=== PATIENT | male | born 1945 | race Caucasian/White ===

== ENCOUNTER 2024-05-21 20:08 | Inpatient (IN) | payer MEDICARE, OTHER ==
[2024-05-21 21:31] LABS: #Basophils 0.03 10x3/uL (0.0-0.2); %Basophils 0.4 % (0.0-1.0); %Eosinophils 1.3 % (0.0-10.0); %Lymphocytes 13.6 % (21.0-51.0); %Monocytes 11.5 % (0.0-10.0); %Neutrophils 72.6 % (42.0-75.0); Hematocrit 39.8 % (42.0-52.0); Hemoglobin 13.2 g/dL (14.0-18.0); Mean Corpuscular HGB CONC 33.2 g/dL (32.0-36.0); Mean Corpuscular Hemoglobin 33.8 pg (27.0-31.0); Mean Corpuscular Volume 102.1 fL (78.0-98.0); Mean Platelet Volume 9.8 fL (7.4-10.4); Platelet Count 391 10x3/uL (130-400)
[2024-05-21 21:42] LABS: ALT (SGPT) 10 U/L (8-55); AST (SGOT) 15 U/L (5-34); Albumin 2.6 g/dL (3.4-4.8); Alkaline Phosphatase 90 U/L (40-110); Anion Gap 13 mmol/L (10-20); BUN (Urea Nitrogen) 16 mg/dL (8.4-25.7); Bilirubin, Total 0.5 mg/dL (0.2-1.2); Calc. Creatinine Clearance 0 mL/min (70-130); Calcium 9.1 mg/dL (7.8-10.44); Carbon Dioxide 29 mmol/L (23-31); Chloride 105 mmol/L (98-107); Estimated GFR 60; Globulin 3.6 g/dL (2.4-3.5); Glucose 95 mg/dL (83-110); Magnesium 2.1 mg/dL (1.6-2.6); Potassium 3.9 mmol/L (3.5-5.1); Protein, Total 6.2 g/dL (5.8-8.1); Sodium 143 mmol/L (136-145)
[2024-05-21] MEDS ORDERED: Acetaminophen 650 MG Suppository PR PRN (22:46)
[2024-05-21] MEDS ORDERED: Ondansetron PF 4 MG/2 ML Vial IVP PRN (22:46)
[2024-05-21] MEDS ORDERED: Ondansetron ODT 4 MG TAB PO PRN (22:46)
[2024-05-21] MEDS ORDERED: traMADol HCl 50 MG TAB PO PRN (22:46)
[2024-05-22 00:14] VITALS: BMI 23.4
[2024-05-22 05:35] LABS: #Basophils 0.04 10x3/uL (0.0-0.2); %Basophils 0.6 % (0.0-1.0); %Eosinophils 1.9 % (0.0-10.0); %Lymphocytes 15.1 % (21.0-51.0); %Monocytes 11.1 % (0.0-10.0); %Neutrophils 70.8 % (42.0-75.0); Hematocrit 38.1 % (42.0-52.0); Hemoglobin 12.4 g/dL (14.0-18.0); Mean Corpuscular HGB CONC 32.5 g/dL (32.0-36.0); Mean Corpuscular Volume 104.4 fL (78.0-98.0); Mean Platelet Volume 9.5 fL (7.4-10.4); Platelet Count 323 10x3/uL (130-400); RBC Distribution Width 15.9 % (11.5-14.5); Red Blood Cell (RBC) Count 3.65 mill/uL (4.70-6.10)
[2024-05-22 05:48] LABS: Anion Gap 14 mmol/L (10-20); BUN (Urea Nitrogen) 16 mg/dL (8.4-25.7); Calc. Creatinine Clearance 55 mL/min (70-130); Calcium 8.7 mg/dL (7.8-10.44); Carbon Dioxide 26 mmol/L (23-31); Chloride 104 mmol/L (98-107); Estimated GFR 72; Glucose 94 mg/dL (83-110); Potassium 3.8 mmol/L (3.5-5.1); Sodium 140 mmol/L (136-145)
[2024-05-22] MEDS ORDERED: Famotidine/PF 20 mg/2ml Vial ONE (08:33)
[2024-05-22] MEDS: Famotidine/PF 20 mg/2ml Vial SLOW IVP SCH (08:36)
[2024-05-22] MEDS ORDERED: Magnevist 469MG/ML 20 ML VIAL ONE (10:59)
[2024-05-22] MEDS: Ipratropium/Albuterol 3 ML NEB NEB SCH (18:30)
[2024-05-22] MEDS ORDERED: Enoxaparin 60 MG (0.6 mL) SYRINGE SC SCH (21:00)
[2024-05-23 05:24] LABS: #Basophils 0.04 10x3/uL (0.0-0.2); %Basophils 0.6 % (0.0-1.0); %Eosinophils 0.8 % (0.0-10.0); %Lymphocytes 12.4 % (21.0-51.0); %Monocytes 10.4 % (0.0-10.0); %Neutrophils 75.3 % (42.0-75.0); Hematocrit 34.6 % (42.0-52.0); Hemoglobin 11.3 g/dL (14.0-18.0); Mean Corpuscular HGB CONC 32.7 g/dL (32.0-36.0); Mean Corpuscular Hemoglobin 33.7 pg (27.0-31.0); Mean Corpuscular Volume 103.3 fL (78.0-98.0); Mean Platelet Volume 9.5 fL (7.4-10.4); Platelet Count 315 10x3/uL (130-400); Red Blood Cell (RBC) Count 3.35 mill/uL (4.70-6.10)
[2024-05-23] MEDS: Furosemide 40 MG TAB PO SCH (08:36)
[2024-05-23] MEDS ORDERED: Lidocaine 1% MPF 2 ML VIAL ONE (08:57)
[2024-05-23] MEDS ORDERED: fentaNYL 50 mcg/mL 1 mL Vial ONE (09:11)
[2024-05-23] MEDS ORDERED: fentaNYL PF 100 MCG/2 ML SYRINGE ONE (09:40)
[2024-05-23] MEDS ORDERED: Rocuronium Bromide 10 MG/ML (10ML VIAL) ONE (09:40)
[2024-05-23] MEDS ORDERED: PROPOFOL 20 ML ONE (09:41)
[2024-05-23] MEDS ORDERED: PHENYLEPHRINE-NS 100 MCG/ML 10 ML SYRINGE ONE (09:58)
[2024-05-23] MEDS ORDERED: CEFAZOLIN 2 GM in Sodium Chloride 0.9% 100 ML IVPB SCH (10:00)
[2024-05-23] MEDS ORDERED: Bupivacaine PF 0.5% 30 ML VIAL ONE (10:10)
[2024-05-23] MEDS ORDERED: EPINEPHrine 1 MG/ML VIAL ONE (10:10)
[2024-05-23] MEDS ORDERED: Ondansetron PF 4 MG/2 ML Vial ONE (10:24)
[2024-05-23] MEDS ORDERED: Dexamethasone 4 mg/ml Vial ONE (10:24)
[2024-05-23] MEDS ORDERED: SUGAMMADEX SODIUM 200 MG/2 ML VIAL ONE (10:27)
[2024-05-23] MEDS ORDERED: HYDROmorphone 2 MG/ML VIAL SLOW IVP PRN (10:49)
[2024-05-23] MEDS ORDERED: Ondansetron HCl/PF 4 MG/2 ML Vial IVP PRN (10:49)
[2024-05-23] MEDS: Acetaminophen 325 MG TAB PO PRN (16:42)
[2024-05-24 08:31] LABS: #Basophils Less than 0.03 10x3/uL (0.0-0.2); #Eosinophils Less than 0.03 10x3/uL (0.0-0.7); %Basophils 0.1 % (0.0-1.0); %Eosinophils 0.1 % (0.0-10.0); %Lymphocytes 9.9 % (21.0-51.0); %Monocytes 10.2 % (0.0-10.0); %Neutrophils 79.2 % (42.0-75.0); Hematocrit 35.3 % (42.0-52.0); Hemoglobin 11.8 g/dL (14.0-18.0); Mean Corpuscular HGB CONC 33.4 g/dL (32.0-36.0); Mean Corpuscular Hemoglobin 34.4 pg (27.0-31.0); Mean Corpuscular Volume 102.9 fL (78.0-98.0); Platelet Count 308 10x3/uL (130-400); RBC Distribution Width 15.9 % (11.5-14.5); Red Blood Cell (RBC) Count 3.43 mill/uL (4.70-6.10)
[2024-05-24 08:58] LABS: Anion Gap 13 mmol/L (10-20); BUN (Urea Nitrogen) 18 mg/dL (8.4-25.7); Calc. Creatinine Clearance 52 mL/min (70-130); Calcium 8.8 mg/dL (7.8-10.44); Carbon Dioxide 30 mmol/L (23-31); Chloride 103 mmol/L (98-107); Estimated GFR 68; Glucose 121 mg/dL (83-110); Potassium 4.7 mmol/L (3.5-5.1); Sodium 141 mmol/L (136-145)
[2024-05-24] MEDS: traMADol HCl 50 MG TAB PO PRN (14:57)
[2024-05-25 05:53] LABS: #Basophils Less than 0.03 10x3/uL (0.0-0.2); %Basophils 0.4 % (0.0-1.0); %Eosinophils 1.2 % (0.0-10.0); %Lymphocytes 17.3 % (21.0-51.0); %Monocytes 12.7 % (0.0-10.0); %Neutrophils 67.4 % (42.0-75.0); Hematocrit 32.4 % (42.0-52.0); Hemoglobin 10.7 g/dL (14.0-18.0); Mean Corpuscular Hemoglobin 33.6 pg (27.0-31.0); Mean Corpuscular Volume 101.9 fL (78.0-98.0); Mean Platelet Volume 9.7 fL (7.4-10.4); Platelet Count 262 10x3/uL (130-400); RBC Distribution Width 15.9 % (11.5-14.5); Red Blood Cell (RBC) Count 3.18 mill/uL (4.70-6.10)
[2024-05-25 06:12] LABS: Anion Gap 9 mmol/L (10-20); BUN (Urea Nitrogen) 19 mg/dL (8.4-25.7); Calc. Creatinine Clearance 58 mL/min (70-130); Calcium 8.4 mg/dL (7.8-10.44); Carbon Dioxide 30 mmol/L (23-31); Chloride 103 mmol/L (98-107); Estimated GFR 77; Glucose 90 mg/dL (83-110); Potassium 3.9 mmol/L (3.5-5.1); Sodium 138 mmol/L (136-145)
[2024-05-25] MEDS: Polyethylene Glycol 3350 17 GM Packet PO SCH (12:22)
[2024-05-25 12:34] VITALS: BP 107/54; TEMP 97.4
== END 2024-05-25 15:43 | disposition home or self-care (01) | DRG 180 ==
LOC: ERS 20:08 → SUATTDRO 20:08 → ERHOLD 22:46 → SURG B 05-22 14:16
PROVIDERS: ADMIT Family Medicine; ATTEND Internal Medicine
PROC: 0WB84ZX Excision of Chest Wall, Percutaneous Endoscopic Approach, Diagnostic (ICD-10-PCS; principal; 2024-05-23)
PROC: 0W9900Z Drainage of Right Pleural Cavity with Drainage Device, Open Approach (ICD-10-PCS; 2024-05-23)
DX: C34.91 Malignant neoplasm of unspecified part of right bronchus or lung (principal); J96.01 Acute respiratory failure with hypoxia; J91.0 Malignant pleural effusion; R64 Cachexia; I48.91 Unspecified atrial fibrillation; Z86.73 Personal history of transient ischemic attack (TIA), and cerebral infarction without residual deficits; Z79.82 Long term (current) use of aspirin; Z79.899 Other long term (current) drug therapy; Z87.891 Personal history of nicotine dependence; Z68.23 Body mass index [BMI] 23.0-23.9, adult
CPT/HCPCS: 36415; 70553; 71045; 76376; 80048; 80053; 83735; 83880; 85025; 93005; 94640; A7048; J0171; J0665; J1100; J1642; J2405; J2704; J3010; J3490; J7620

== ENCOUNTER 2024-06-19 09:21 | Day surgery (SDC) | payer OTHER ==
[2024-06-18 10:24] VITALS: BMI 22.1
[2024-06-19] MEDS ORDERED: fentaNYL 50 mcg/mL 1 mL Vial ONE (11:05)
[2024-06-19] MEDS ORDERED: ePHEDrine Sulfate 50 MG/10 ML VIAL ONE (11:05)
[2024-06-19] MEDS ORDERED: PROPOFOL 20 ML ONE (11:05)
[2024-06-19] MEDS ORDERED: Lidocaine 2% PF 5 ML VIAL ONE (11:06)
[2024-06-19] MEDS ORDERED: PHENYLEPHRINE-NS 100 MCG/ML 10 ML SYRINGE ONE (11:06)
[2024-06-19] MEDS ORDERED: Dexamethasone 20 MG/5 ML VIAL ONE (11:06)
[2024-06-19] MEDS ORDERED: Ondansetron PF 4 MG/2 ML Vial ONE (11:06)
[2024-06-19] MEDS ORDERED: Lidocaine 2% 6 ML (Jelly) SYR ONE (11:06)
[2024-06-19] MEDS ORDERED: Protamine Sulfate 50 MG/5 ML VIAL ONE (11:09)
[2024-06-19] MEDS ORDERED: SUGAMMADEX SODIUM 200 MG/2 ML VIAL ONE (11:20)
[2024-06-19] MEDS ORDERED: Lidocaine 1% (PF) 30 ML VIAL ONE (11:38)
[2024-06-19] MEDS ORDERED: CEFAZOLIN 2 GM VIAL ONE (11:46)
== END 2024-06-19 14:40 | disposition home or self-care (01) ==
LOC: SDC 09:21
PROVIDERS: ATTEND Thoracic Surgery (Cardiothoracic Vascular Surgery)
PROC: 05HM33Z Insertion of Infusion Device into Right Internal Jugular Vein, Percutaneous Approach (ICD-10-PCS; principal; 2024-06-19)
PROC: 0WP9X0Z Removal of Drainage Device from Right Pleural Cavity, External Approach (ICD-10-PCS; principal; 2024-06-19)
DX: C34.90 Malignant neoplasm of unspecified part of unspecified bronchus or lung (principal); J90 Pleural effusion, not elsewhere classified; J44.9 Chronic obstructive pulmonary disease, unspecified; Z99.81 Dependence on supplemental oxygen; Z87.891 Personal history of nicotine dependence; Z77.090 Contact with and (suspected) exposure to asbestos; Z79.82 Long term (current) use of aspirin; Z79.01 Long term (current) use of anticoagulants
CPT/HCPCS: C1788; J1100; J1642; J2405; J2704; J2720; J3010

== ENCOUNTER 2024-06-25 08:45 | Outpatient (CLI) | payer OTHER | END 2024-06-25 08:46 | disposition home or self-care (01) | LOC: PET 08:45 | PROVIDERS: ATTEND Internal Medicine Hematology & Oncology | DX: C34.81 Malignant neoplasm of overlapping sites of right bronchus and lung (principal); C78.2 Secondary malignant neoplasm of pleura; R59.0 Localized enlarged lymph nodes; M47.816 Spondylosis without myelopathy or radiculopathy, lumbar region | CPT/HCPCS: 78815; A9552 ==

== ENCOUNTER 2024-06-27 21:31 | Inpatient (IN) | payer MEDICARE, OTHER ==
[~2024-06-27 21:31] MED LIST: Iopamidol-370 76% 500 ML MDV (1 ML CHARGE) ONE
[2024-06-27] MEDS ORDERED: Dexamethasone 10 MG/ML VIAL ONE (21:42)
[2024-06-27] MEDS ORDERED: Cefepime 2 GM VIAL ONE (21:43)
[2024-06-27] MEDS ORDERED: Sodium Chloride 0.9% 100 ML ONE (21:43)
[2024-06-27] MEDS ORDERED: Magnesium 2 GM/50 ML BAG (IN WATER) ONE (21:43)
[2024-06-27] MEDS ORDERED: Albuterol 2.5 MG (3 mL) NEB ONE (21:44)
[2024-06-27] MEDS ORDERED: Ipratropium/Albuterol 3 ML NEB ONE (21:44)
[2024-06-27 21:46] LABS: Actual Bicarbonate (HCO3v) 29.5 mEq/L (22-28); Analyzer IN Cardio ER; Base Excess 4.7 mEq/L (-2.0 to +3.0); Calcium, Ionized (venous) 1.04 mmol/L (1.16-1.32); Chloride (VBG) 98 mmol/L (98-106); Hematocrit-VBG 33 % (42.0-52.0); Hemoglobin (Hb) 11.2 g/dL (12.6-17.4); Potassium (VBG) 4.98 mmol/L (3.70-5.30); Sodium 135 mmol/L (133-146)
[2024-06-27 21:52] LABS: Actual Bicarbonate (HCO3a) 29.7 mEq/L (22-28); Analyzer IN Cardio ER; Base Excess (BEa) 3.8 mEq/L (-2.0 to +3.0); CO2 Tension 51.3 mmHg (35.0-45.0); Calcium, Ionized (arterial) 1.15 mmol/L (1.12-1.30); Carboxyhemoglobin (COHb) 1.1 gm% (0.0-3.0); Hematocrit-ABG 31 % (42.0-52.0); Hemoglobin (Hb) 10.4 g/dL (14.0-18.0); pH, Arterial 7.381 (7.35-7.45)
[2024-06-27 21:55] LABS: ALV-art Gradient 536.875 mmHg (0-20); Puncture Site Right Radial artery
[2024-06-27 22:11] LABS: Hematocrit 32.2 % (42.0-52.0); Hemoglobin 10.5 g/dL (14.0-18.0); Mean Corpuscular HGB CONC 32.6 g/dL (32.0-36.0); Mean Corpuscular Hemoglobin 33.7 pg (27.0-31.0); Mean Corpuscular Volume 103.2 fL (78.0-98.0); Mean Platelet Volume 9.4 fL (7.4-10.4); Platelet Count 425 10x3/uL (130-400); RBC Distribution Width 16.8 % (11.5-14.5); Red Blood Cell (RBC) Count 3.12 mill/uL (4.70-6.10)
[2024-06-27 22:32] LABS: Anisocytosis SLIGHT = 6-15 cells HPF (0-5); Band 22 % (5-11); Burr Cells SLIGHT = 2-5 cells HPF (0-1); Lymphocytes 2 % (21-51); Macrocytosis SLIGHT = 6-15 cells HPF (0-5); Monocytes 1 % (0-10); Neutrophil 75 % (42-75); Platelet Adequacy Comment Platelets Increased; Polychromasia SLIGHT = 2-3 cells HPF (0-2); Reflex for Review?? YES
[2024-06-27 22:52] LABS: ALT (SGPT) 15 U/L (8-55); AST (SGOT) 22 U/L (5-34); Albumin 2.3 g/dL (3.4-4.8); Alkaline Phosphatase 112 U/L (40-110); Anion Gap 18 mmol/L (10-20); BUN (Urea Nitrogen) 28 mg/dL (8.4-25.7); Bilirubin, Total 0.7 mg/dL (0.2-1.2); Calc. Creatinine Clearance 0 mL/min (70-130); Calcium 8.7 mg/dL (7.8-10.44); Carbon Dioxide 25 mmol/L (23-31); Chloride 101 mmol/L (98-107); Estimated GFR 59; Glucose 87 mg/dL (83-110); Protein, Total 6.3 g/dL (5.8-8.1); Sodium 139 mmol/L (136-145)
[2024-06-27] MEDS ORDERED: Ondansetron PF 4 MG/2 ML Vial IVP PRN (23:39)
[2024-06-28 00:16] LABS: Bacteria/HPF 4+ HPF (None Seen); Bilirubin Negative (Negative); Blood, Urine Negative (Negative); CAUTI Indications for Culture Alt mental st,lethar; Clarity Turbid (Clear); Glucose, Urine (Dipstick) Normal (Negative); Ketone, Urine Negative (Negative); Leukocyte 500 Leu/uL (Negative); Nitrite Negative (Negative); Protein, Urine (Dipstick) Negative (Neg-Trace); RBC/HPF 0-3 HPF (0-3); Specific Gravity, Urine 1.004 (1.002-1.036); Squamous Epithelial 0-3 HPF (0-3); Urobilinogen Normal mg/dL (Less than 2); WBC/HPF Greater than 50 HPF (0-3)
[2024-06-28 00:22] LABS: Urine Culture Reflex Yes Yes
[2024-06-28 01:33] LABS: Lactic Acid 1.05 mmol/L (0.5-2.2)
[2024-06-28] MEDS: Ipratropium/Albuterol 3 ML NEB NEB SCH (02:30)
[2024-06-28 03:35] LABS: Hematocrit 30.7 % (42.0-52.0); Hemoglobin 9.9 g/dL (14.0-18.0); Mean Corpuscular HGB CONC 32.2 g/dL (32.0-36.0); Mean Corpuscular Hemoglobin 33.7 pg (27.0-31.0); Mean Corpuscular Volume 104.4 fL (78.0-98.0); Mean Platelet Volume 9.3 fL (7.4-10.4); Platelet Count 380 10x3/uL (130-400); RBC Distribution Width 16.8 % (11.5-14.5); Red Blood Cell (RBC) Count 2.94 mill/uL (4.70-6.10)
[2024-06-28] MEDS: Vancomycin (BATCH) 2 GM in Premix 1 BAG IVPB SCH (03:50)
[2024-06-28 03:52] LABS: Anion Gap 15 mmol/L (10-20); BUN (Urea Nitrogen) 30 mg/dL (8.4-25.7); Calc. Creatinine Clearance 0 mL/min (70-130); Calcium 8.4 mg/dL (7.8-10.44); Carbon Dioxide 29 mmol/L (23-31); Chloride 101 mmol/L (98-107); Estimated GFR 64; Glucose 126 mg/dL (83-110); Potassium 4.8 mmol/L (3.5-5.1); Sodium 140 mmol/L (136-145)
[2024-06-28] MEDS ORDERED: Albuterol 2.5 MG (3 mL) NEB NEB PRN (03:55)
[2024-06-28 04:29] VITALS: BMI 25.4
[2024-06-28] MEDS: Furosemide 20 MG (2 mL) VIAL SLOW IVP SCH (05:42)
[2024-06-28 06:07] LABS: Anisocytosis SLIGHT = 6-15 cells HPF (0-5); Band 14 % (5-11); Hypochromia SLIGHT = 6-15 cells HPF (0-5); Microcytosis SLIGHT = 6-15 cells HPF (0-5); Neutrophil 86 % (42-75); Platelet Adequacy Comment Platelets Normal; Poikilocytosis SLIGHT = 6-15 cells HPF (0-5); Polychromasia SLIGHT = 2-3 cells HPF (0-2)
[2024-06-28] MEDS: Apixaban 5 MG TAB PO SCH (09:49)
[2024-06-28] MEDS: Cefepime 2 GM in Sodium Chloride 0.9% 100 ML IVPB SCH (09:49)
[2024-06-28] MEDS: VANCOMYCIN 1.25 GM/250 ML BAG 1.25 GM in Premix 1 BAG IVPB SCH (14:37)
[2024-06-29 03:42] LABS: Hemoglobin 9.3 g/dL (14.0-18.0); Mean Corpuscular HGB CONC 32.1 g/dL (32.0-36.0); Mean Corpuscular Hemoglobin 33.5 pg (27.0-31.0); Mean Corpuscular Volume 104.3 fL (78.0-98.0); Mean Platelet Volume 9.9 fL (7.4-10.4); Platelet Count 287 10x3/uL (130-400); RBC Distribution Width 16.8 % (11.5-14.5); Red Blood Cell (RBC) Count 2.78 mill/uL (4.70-6.10)
[2024-06-29 04:06] LABS: Vancomycin, Random 12.5 ug/mL (See Comment)
[2024-06-29 04:07] LABS: Anion Gap 11 mmol/L (10-20); BUN (Urea Nitrogen) 33 mg/dL (8.4-25.7); Calc. Creatinine Clearance 53 mL/min (70-130); Calcium 8.1 mg/dL (7.8-10.44); Carbon Dioxide 30 mmol/L (23-31); Chloride 99 mmol/L (98-107); Estimated GFR 59; Glucose 108 mg/dL (83-110); Potassium 4.6 mmol/L (3.5-5.1); Sodium 135 mmol/L (136-145)
[2024-06-29 04:15] LABS: Band 11 % (5-11); Lymphocytes 3 % (21-51); Macrocytosis SLIGHT = 6-15 cells HPF (0-5); Neutrophil 86 % (42-75); Platelet Adequacy Comment Platelets Normal; Polychromasia SLIGHT = 2-3 cells HPF (0-2)
[2024-06-29] MEDS ORDERED: Benzonatate 100 MG CAP PO PRN (16:57)
[2024-06-30 03:20] LABS: Anion Gap 12 mmol/L (10-20); BUN (Urea Nitrogen) 37 mg/dL (8.4-25.7); Calc. Creatinine Clearance 67 mL/min (70-130); Calcium 7.9 mg/dL (7.8-10.44); Carbon Dioxide 28 mmol/L (23-31); Chloride 98 mmol/L (98-107); Estimated GFR 77; Glucose 90 mg/dL (83-110); Potassium 4.2 mmol/L (3.5-5.1); Sodium 134 mmol/L (136-145)
[2024-06-30 03:37] LABS: Hematocrit 27.3 % (42.0-52.0); Hemoglobin 8.8 g/dL (14.0-18.0); Mean Corpuscular HGB CONC 32.2 g/dL (32.0-36.0); Mean Corpuscular Hemoglobin 32.4 pg (27.0-31.0); Mean Corpuscular Volume 100.4 fL (78.0-98.0); Mean Platelet Volume 9.9 fL (7.4-10.4); Platelet Count 190 10x3/uL (130-400); RBC Distribution Width 16.8 % (11.5-14.5); Red Blood Cell (RBC) Count 2.72 mill/uL (4.70-6.10)
[2024-06-30 05:42] LABS: Anisocytosis SLIGHT = 6-15 cells HPF (0-5); Band 17 % (5-11); Hypochromia SLIGHT = 6-15 cells HPF (0-5); Lymphocytes 3 % (21-51); Macrocytosis SLIGHT = 6-15 cells HPF (0-5); Neutrophil 80 % (42-75); Platelet Adequacy Comment Platelets Normal; Polychromasia SLIGHT = 2-3 cells HPF (0-2); RBC Morphology Within Normal Limits
[2024-06-30] MEDS: Aspirin Chewable 81 MG TAB PO SCH (08:18)
[2024-06-30] MEDS: Atorvastatin Calcium 40 MG TAB PO SCH (08:18)
[2024-06-30] MEDS: Acetaminophen 325 MG TAB PO PRN (21:26)
[2024-06-30] MEDS: Lidocaine 2% Viscous Solution 10 ML, Aluminum & Magnesium Hydroxide 30 ML SSW SCH (22:46)
[2024-07-01 04:57] LABS: Hematocrit 25.2 % (42.0-52.0); Hemoglobin 8.3 g/dL (14.0-18.0); Mean Corpuscular HGB CONC 32.9 g/dL (32.0-36.0); Mean Corpuscular Hemoglobin 32.8 pg (27.0-31.0); Mean Corpuscular Volume 99.6 fL (78.0-98.0); Mean Platelet Volume 10.6 fL (7.4-10.4); Platelet Count 107 10x3/uL (130-400); RBC Distribution Width 16.5 % (11.5-14.5); Red Blood Cell (RBC) Count 2.53 mill/uL (4.70-6.10)
[2024-07-01 05:38] LABS: Band 4 % (5-11); Large Platelets 7.4 % (0-5); Lymphocytes 67 % (21-51); Macrocytosis SLIGHT = 6-15 cells HPF (0-5); Neutrophil 30 % (42-75); Nucleated RBC (Manual Ct) 4 % (0); Platelet Adequacy Comment Platelets Decreased; Polychromasia MODERATE = 3-4 cells HPF (0-2)
[2024-07-01 07:13] LABS: Monocytes 12 % (0-10)
[2024-07-01] MEDS: Furosemide 20 MG TAB PO SCH (09:47)
[2024-07-02 06:06] LABS: Hematocrit 24.4 % (42.0-52.0); Hemoglobin 7.9 g/dL (14.0-18.0); Mean Corpuscular HGB CONC 32.4 g/dL (32.0-36.0); Mean Corpuscular Hemoglobin 32.1 pg (27.0-31.0); Mean Corpuscular Volume 99.2 fL (78.0-98.0); Mean Platelet Volume 11.3 fL (7.4-10.4); Platelet Count 58 10x3/uL (130-400); RBC Distribution Width 16.3 % (11.5-14.5); Red Blood Cell (RBC) Count 2.46 mill/uL (4.70-6.10)
[2024-07-02 06:45] LABS: Anisocytosis MODERATE=16-30 cells HPF (0-5); Band 8 % (5-11); Eosinophils 11 % (0-10); Lymphocytes 60 % (21-51); Macrocytosis SLIGHT = 6-15 cells HPF (0-5); Neutrophil 19 % (42-75); Platelet Adequacy Comment Platelets Decreased; Smudge Cells 25.2 %
[2024-07-02] MEDS: Polyethylene Glycol 3350 17 GM Packet PO PRN (11:36)
[2024-07-03 05:09] LABS: Hematocrit 22.4 % (42.0-52.0); Hemoglobin 7.3 g/dL (14.0-18.0); Mean Corpuscular HGB CONC 32.6 g/dL (32.0-36.0); Mean Corpuscular Hemoglobin 32.6 pg (27.0-31.0); Mean Platelet Volume 11.9 fL (7.4-10.4); Platelet Count 27 10x3/uL (130-400); RBC Distribution Width 16.1 % (11.5-14.5); Red Blood Cell (RBC) Count 2.24 mill/uL (4.70-6.10)
[2024-07-03 05:40] LABS: Anisocytosis SLIGHT = 6-15 cells HPF (0-5); Band 2 % (5-11); Eosinophils 7 % (0-10); Hypochromia SLIGHT = 6-15 cells HPF (0-5); Lymphocytes 70 % (21-51); Macrocytosis SLIGHT = 6-15 cells HPF (0-5); Neutrophil 19 % (42-75); Nucleated RBC (Manual Ct) 1 % (0); Platelet Adequacy Comment Platelets Decreased; Polychromasia SLIGHT = 2-3 cells HPF (0-2)
[2024-07-03] MEDS: LevoFLOXacin 500 MG TAB PO SCH (08:25)
[2024-07-04 05:01] LABS: Hematocrit 22.8 % (42.0-52.0); Hemoglobin 7.5 g/dL (14.0-18.0); Mean Corpuscular HGB CONC 32.9 g/dL (32.0-36.0); Mean Corpuscular Hemoglobin 32.2 pg (27.0-31.0); Mean Corpuscular Volume 97.9 fL (78.0-98.0); Mean Platelet Volume 11.6 fL (7.4-10.4); Platelet Count 30 10x3/uL (130-400); RBC Distribution Width 16.4 % (11.5-14.5); Red Blood Cell (RBC) Count 2.33 mill/uL (4.70-6.10)
[2024-07-04 05:30] LABS: Eosinophils 16 % (0-10); Hypochromia SLIGHT = 6-15 cells HPF (0-5); Lymphocytes 67 % (21-51); Monocytes 4 % (0-10); Neutrophil 12 % (42-75); Platelet Adequacy Comment Platelets Normal; Polychromasia SLIGHT = 2-3 cells HPF (0-2)
[2024-07-04 16:26] LABS: Bacteria/HPF 1+ HPF (None Seen); Bilirubin Negative (Negative); Blood, Urine Negative (Negative); CAUTI Indications for Culture Immunosuppressed; Clarity Clear (Clear); Glucose, Urine (Dipstick) Normal (Negative); Ketone, Urine Negative (Negative); Leukocyte Negative Leu/uL (Negative); Nitrite Negative (Negative); Protein, Urine (Dipstick) 20 mg/dL (Neg-Trace); RBC/HPF 0-3 HPF (0-3); Squamous Epithelial None Seen HPF (0-3); Urobilinogen Normal mg/dL (Less than 2); WBC/HPF 0-3 HPF (0-3); pH, Urine 6.5 (5.0-9.0)
[2024-07-04 16:28] LABS: Urine Culture Reflex Yes Yes
[2024-07-05 05:18] LABS: Hematocrit 22.8 % (42.0-52.0); Hemoglobin 7.6 g/dL (14.0-18.0); Mean Corpuscular HGB CONC 33.3 g/dL (32.0-36.0); Mean Corpuscular Hemoglobin 32.2 pg (27.0-31.0); Mean Corpuscular Volume 96.6 fL (78.0-98.0); Mean Platelet Volume 12.2 fL (7.4-10.4); Platelet Count 15 10x3/uL (130-400); RBC Distribution Width 15.8 % (11.5-14.5); Red Blood Cell (RBC) Count 2.36 mill/uL (4.70-6.10)
[2024-07-05 06:03] LABS: Anisocytosis SLIGHT = 6-15 cells HPF (0-5); Band 6 % (5-11); Eosinophils 9 % (0-10); Lymphocytes 69 % (21-51); Monocytes 8 % (0-10); Myelocyte 1 % (0-0); Neutrophil 7 % (42-75); Platelet Adequacy Comment Platelets Decreased; Reactive Lymphocytes 1 % (0-10); Spherocytes SLIGHT = 1-5 cells HPF (None Seen)
[2024-07-05 17:05] LABS: Hematocrit 19.3 % (42.0-52.0); Hemoglobin 6.4 g/dL (14.0-18.0); Mean Corpuscular HGB CONC 33.2 g/dL (32.0-36.0); Mean Corpuscular Hemoglobin 32.3 pg (27.0-31.0); Mean Corpuscular Volume 97.5 fL (78.0-98.0); Mean Platelet Volume 10.4 fL (7.4-10.4); Platelet Count 28 10x3/uL (130-400); RBC Distribution Width 15.9 % (11.5-14.5); Red Blood Cell (RBC) Count 1.98 mill/uL (4.70-6.10)
[2024-07-05 17:30] LABS: Anisocytosis SLIGHT = 6-15 cells HPF (0-5); Band 6 % (5-11); Eosinophils 7 % (0-10); Large Platelets 1.9 % (0-5); Lymphocytes 63 % (21-51); Metamyelocyte 1 % (0-0); Monocytes 10 % (0-10); Neutrophil 13 % (42-75); Platelet Adequacy Comment Platelets Decreased; Polychromasia SLIGHT = 2-3 cells HPF (0-2)
[2024-07-06 05:49] LABS: Hematocrit 22.8 % (42.0-52.0); Hemoglobin 7.5 g/dL (14.0-18.0); Mean Corpuscular HGB CONC 32.9 g/dL (32.0-36.0); Mean Corpuscular Hemoglobin 31.1 pg (27.0-31.0); Mean Corpuscular Volume 94.6 fL (78.0-98.0); Mean Platelet Volume 11.4 fL (7.4-10.4); Platelet Count 24 10x3/uL (130-400); RBC Distribution Width 16.3 % (11.5-14.5); Red Blood Cell (RBC) Count 2.41 mill/uL (4.70-6.10)
[2024-07-06 06:02] LABS: Anion Gap 10 mmol/L (10-20); BUN (Urea Nitrogen) 29 mg/dL (8.4-25.7); Calc. Creatinine Clearance 76 mL/min (70-130); Calcium 8.5 mg/dL (7.8-10.44); Carbon Dioxide 28 mmol/L (23-31); Chloride 100 mmol/L (98-107); Estimated GFR 91; Glucose 82 mg/dL (83-110); Potassium 4.1 mmol/L (3.5-5.1); Sodium 134 mmol/L (136-145)
[2024-07-06 06:24] LABS: Band 14 % (5-11); Eosinophils 7 % (0-10); Hypochromia SLIGHT = 6-15 cells HPF (0-5); Large Platelets 1.9 % (0-5); Lymphocytes 55 % (21-51); Monocytes 9 % (0-10); Neutrophil 15 % (42-75); Platelet Adequacy Comment Platelets Decreased; Polychromasia SLIGHT = 2-3 cells HPF (0-2); Reactive Lymphocytes 1 % (0-10)
[2024-07-06] MEDS: Senokot S 8.6-50 MG TAB PO SCH (20:12)
[2024-07-07] MEDS ORDERED: Bisacodyl 10 MG SUPP PR PRN (08:11)
[2024-07-07] MEDS: Polyethylene Glycol 3350 17 GM Packet PO SCH ×2 (09:22→09:39)
[2024-07-07] MEDS: Bisacodyl 5 MG TAB PO SCH (09:23)
[2024-07-07] MEDS: Ipratropium/Albuterol 3 ML NEB NEB SCH (20:24)
[2024-07-08] MEDS ORDERED: Atorvastatin Calcium 20 MG TAB ONE (07:54)
[2024-07-08] MEDS ORDERED: Senokot S 8.6-50 MG TAB ONE ×2 (07:54→20:05)
[2024-07-08] MEDS ORDERED: Furosemide 20 MG TAB ONE (07:54)
[2024-07-08] MEDS ORDERED: Polyethylene Glycol 3350 17 GM Packet ONE (07:54)
[2024-07-08] MEDS ORDERED: Zolpidem Tartrate 5 MG TAB ONE (20:05)
[2024-07-08] MEDS ORDERED: Acetaminophen 325 MG TAB ONE (20:05)
[2024-07-09] MEDS ORDERED: Acetaminophen 325 MG TAB ONE ×2 (02:37→03:20)
[2024-07-09] MEDS: Zolpidem Tartrate 5 MG TAB ONE (18:38)
[2024-07-09] MEDS ORDERED: Senokot S 8.6-50 MG TAB ONE (20:05)
[2024-07-10] MEDS: Zolpidem Tartrate 5 MG TAB ONE ×2 (01:37→20:26)
[2024-07-10] MEDS ORDERED: Furosemide 20 MG TAB ONE (08:07)
[2024-07-10] MEDS ORDERED: Polyethylene Glycol 3350 17 GM Packet ONE (08:07)
[2024-07-10] MEDS ORDERED: Senokot S 8.6-50 MG TAB ONE (08:07)
[2024-07-10] MEDS ORDERED: Atorvastatin Calcium 40 MG TAB ONE (08:07)
[2024-07-10] MEDS ORDERED: Aspirin Chewable 81 MG TAB ONE (08:07)
[2024-07-10 08:45] VITALS: BMI 22.1
[2024-07-10] MEDS: Ipratropium/Albuterol 3 ML NEB ONE ×2 (11:36→20:06)
[2024-07-10 12:03] LABS: Hemoglobin 8.4 g/dL (14.0-18.0); Mean Corpuscular HGB CONC 32.3 g/dL (32.0-36.0); Mean Corpuscular Hemoglobin 31.2 pg (27.0-31.0); Mean Corpuscular Volume 96.7 fL (78.0-98.0); Mean Platelet Volume 10.8 fL (7.4-10.4); Platelet Count 83 10x3/uL (130-400); RBC Distribution Width 15.2 % (11.5-14.5); Red Blood Cell (RBC) Count 2.69 mill/uL (4.70-6.10)
[2024-07-10 12:30] LABS: Band 8 % (5-11); Lymphocytes 3 % (21-51); Metamyelocyte 1 % (0-0); Microcytosis SLIGHT = 6-15 cells HPF (0-5); Monocytes 6 % (0-10); Myelocyte 2 % (0-0); Neutrophil 77 % (42-75); Platelet Adequacy Comment Platelets Decreased; Polychromasia SLIGHT = 2-3 cells HPF (0-2); Reactive Lymphocytes 2 % (0-10)
[2024-07-10 12:32] LABS: Anion Gap 12 mmol/L (10-20); BUN (Urea Nitrogen) 16 mg/dL (8.4-25.7); Calc. Creatinine Clearance 71 mL/min (70-130); Calcium 8.6 mg/dL (7.8-10.44); Carbon Dioxide 26 mmol/L (23-31); Chloride 100 mmol/L (98-107); Estimated GFR 90; Glucose 91 mg/dL (83-110); Potassium 4.4 mmol/L (3.5-5.1); Sodium 134 mmol/L (136-145)
[2024-07-11] MEDS: Ipratropium/Albuterol 3 ML NEB ONE ×2 (07:59)
[2024-07-11] MEDS ORDERED: Ipratropium/Albuterol 3 ML NEB ONE (08:20)
[2024-07-11] MEDS: Aspirin Chewable 81 MG TAB PO SCH (10:43)
[2024-07-11 11:35] VITALS: BP 114/57; TEMP 98
[2024-07-14 08:55] LABS: Hemoglobin 7.5 g/dL (14.0-18.0)
[2024-07-20 10:10] LABS: Hematocrit 19.4 % (42.0-52.0); Hemoglobin 6.5 g/dL (14.0-18.0)
[2024-07-20 10:10] LABS: Hematocrit 19.4 % (42.0-52.0); Hemoglobin 6.5 g/dL (14.0-18.0)
[2024-07-20 10:11] LABS: Platelet Count 13 10x3/uL (130-400)
[2024-07-20 10:12] LABS: Anion Gap 7 mmol/L (10-20); BUN (Urea Nitrogen) 19 mg/dL (8.4-25.7); Calc. Creatinine Clearance 84 mL/min (70-130); Calcium 8.2 mg/dL (7.6-10.4); Carbon Dioxide 31 mmol/L (23-31); Chloride 100 mmol/L (98-107); Estimated GFR 94; Glucose 80 mg/dL (83-110); Potassium 4.1 mmol/L (3.5-5.1); Sodium 134 mmol/L (136-145)
[2024-07-20 10:12] LABS: %Lymphocytes 24.5 % (21.0-51.0); %Monocytes 12.2 % (0.0-10.0); %Neutrophils 56.2 % (42.0-75.0); Hematocrit 19.4 % (42.0-52.0); Hemoglobin 6.5 g/dL (14.0-18.0); Mean Corpuscular HGB CONC 33.5 g/dL (32.0-36.0); Mean Corpuscular Hemoglobin 31.6 pg (27.0-31.0); Mean Corpuscular Volume 94.2 fL (78.0-98.0); Mean Platelet Volume 11.9 fL (7.4-10.4); Platelet Count 13 10x3/uL (130-400); RBC Distribution Width 15.3 % (11.5-14.5); Red Blood Cell (RBC) Count 2.06 mill/uL (4.70-6.10)
[2024-07-20 10:13] LABS: #Basophils Less than 0.03 10x3/uL (0.0-0.2); %Basophils 0.4 % (0.0-1.0); %Eosinophils 2.1 % (0.0-10.0)
[2024-07-20 10:14] LABS: Band 16 % (5-11); Eosinophils 4 % (0-10); Lymphocytes 31 % (21-51); Monocytes 5 % (0-10); Neutrophil 41 % (42-75)
[2024-07-20 10:15] LABS: Anisocytosis SLIGHT = 6-15 cells (100X) (0-5/hpf); Metamyelocyte 1 % (0-0); Poikilocytosis SLIGHT = 6-15 cells (100X) (0-5/hpf)
[2024-07-20 10:17] LABS: Hypochromia SLIGHT = 6-15 cells (100X) (0-5/hpf); Polychromasia SLIGHT = 2-3 cells (100X) (0-2/hpf)
== END 2024-07-11 12:35 | disposition swing bed (61) | DRG 180 ==
LOC: ERS 21:31 → ERHOLD 23:16 → IMCU/EMU 06-28 02:53 → MSONC 06-30 11:13
PROVIDERS: ADMIT Internal Medicine; ATTEND Internal Medicine
PROC: 4A03XR1 Measurement of Arterial Saturation, Peripheral, External Approach (ICD-10-PCS; 2024-06-27)
PROC: 30233N1 Transfusion of Nonautologous Red Blood Cells into Peripheral Vein, Percutaneous Approach (ICD-10-PCS; principal; 2024-07-03)
PROC: 6A551Z2 Pheresis of Platelets, Multiple (ICD-10-PCS; 2024-07-08)
DX: C34.2 Malignant neoplasm of middle lobe, bronchus or lung (principal); D61.810 Antineoplastic chemotherapy induced pancytopenia; G93.41 Metabolic encephalopathy; J96.21 Acute and chronic respiratory failure with hypoxia; J96.22 Acute and chronic respiratory failure with hypercapnia; J18.9 Pneumonia, unspecified organism; J44.1 Chronic obstructive pulmonary disease with (acute) exacerbation; D61.818 Other pancytopenia; C77.1 Secondary and unspecified malignant neoplasm of intrathoracic lymph nodes; N30.00 Acute cystitis without hematuria; R04.2 Hemoptysis; J90 Pleural effusion, not elsewhere classified; I44.0 Atrioventricular block, first degree; F17.290 Nicotine dependence, other tobacco product, uncomplicated; D72.829 Elevated white blood cell count, unspecified; I71.21 Aneurysm of the ascending aorta, without rupture; I48.91 Unspecified atrial fibrillation; N31.9 Neuromuscular dysfunction of bladder, unspecified; D63.8 Anemia in other chronic diseases classified elsewhere; Z92.21 Personal history of antineoplastic chemotherapy; Z86.73 Personal history of transient ischemic attack (TIA), and cerebral infarction without residual deficits; Z98.890 Other specified postprocedural states; Z91.148 Patient's other noncompliance with medication regimen for other reason; B96.1 Klebsiella pneumoniae [K. pneumoniae] as the cause of diseases classified elsewhere; K59.00 Constipation, unspecified; G47.33 Obstructive sleep apnea (adult) (pediatric); T45.1X5A Adverse effect of antineoplastic and immunosuppressive drugs, initial encounter
CPT/HCPCS: 36415; 36430; 36600; 51701; 71045; 71275; 80048; 80053; 80202; 81001; 82805; 83605; 83880; 85014; 85018; 85025; 85049; 85060; 86850; 86900; 86901; 87040; 87077; 87086; 87186; 87428; 93005; 93306; 94640; 94644; 94660; 94760; 96365; 96366; 96367; 96368; 96375; J0692; J1100; J1940; J3370; J3475; J7611; J7620; P9016; P9035; Q9967

== ENCOUNTER 2024-09-04 11:21 | Day surgery (SDC) | payer MEDICARE, OTHER ==
[~2024-09-04 11:21] MED LIST changes: -Iopamidol-370 76% 500 ML MDV (1 ML CHARGE) ONE; +diphenhydrAMINE 25 MG CAP PO SCH
[2024-09-04] MEDS ORDERED: Acetaminophen 500 MG TAB ONE (11:41)
[2024-09-04] MEDS: Acetaminophen 500 MG TAB PO SCH (11:42)
[2024-09-04 15:28] VITALS: BP 137/63; TEMP 97.7
== END 2024-09-04 15:26 | disposition home or self-care (01) ==
LOC: ONC/OP 11:21
PROVIDERS: ATTEND Internal Medicine Hematology & Oncology
DX: D64.9 Anemia, unspecified (principal); D69.6 Thrombocytopenia, unspecified
CPT/HCPCS: 36430; 86850; 86900; 86901; 86920; P9016; P9035

== ENCOUNTER 2024-09-18 09:31 | Day surgery (SDC) | payer OTHER ==
[2024-09-18] MEDS ORDERED: Acetaminophen 500 MG TAB ONE (09:57)
[2024-09-18] MEDS: Acetaminophen 500 MG TAB PO SCH (09:58)
[2024-09-18] MEDS: Furosemide 20 MG (2 mL) VIAL SLOW IVP SCH (12:55)
[2024-09-18 16:30] VITALS: BP 132/74; TEMP 97.7
== END 2024-09-18 16:24 | disposition home or self-care (01) ==
LOC: ONC/OP 09:31
PROVIDERS: ATTEND Internal Medicine Hematology & Oncology
DX: D64.9 Anemia, unspecified (principal); D69.6 Thrombocytopenia, unspecified
CPT/HCPCS: 36430; 86850; 86900; 86901; J1642; J1940; P9016

== ENCOUNTER 2024-10-08 11:53 | Day surgery (SDC) | payer OTHER ==
[2024-10-08] MEDS ORDERED: diphenhydrAMINE 25 MG CAP PO SCH (12:30)
[2024-10-08] MEDS ORDERED: Acetaminophen 500 MG TAB ONE (13:15)
[2024-10-08] MEDS: Acetaminophen 500 MG TAB PO SCH (13:17)
[2024-10-08 15:57] VITALS: BP 136/64; TEMP 97.7
== END 2024-10-08 15:59 | disposition home or self-care (01) ==
LOC: ONC/OP 11:53
PROVIDERS: ATTEND Internal Medicine Hematology & Oncology
DX: D64.9 Anemia, unspecified (principal); D69.6 Thrombocytopenia, unspecified
CPT/HCPCS: 36430; 86850; 86900; 86901; J1642; P9016